=== PATIENT | female | born 1940 | race Caucasian/White ===

== ENCOUNTER → 2019-05-16 | Outpatient (REF) | payer MEDICARE ==
[~2019-05-16] MED LIST: ALLO100T PO; ALPR0.25 PO; ASPI81TA85 PO; ATOR1TAB19 PO; FERR325T82 PO; FURO20TA2 PO; GARL500C PO; LABE200T32 PO; LISI40TA PO; OMEG10002 PO; STOO100C PO; SYNT50TA PO; VITA200028 PO
== END ==
LOC: M LAB REF 14:04
PROVIDERS: ATTEND Internal Medicine Medical Oncology
DX: D64.9 Anemia, unspecified (principal); E78.5 Hyperlipidemia, unspecified; I12.9 Hypertensive chronic kidney disease with stage 1 through stage 4 chronic kidney disease, or unspecified chronic kidney disease